=== PATIENT | male | born 1995 | race Asian ===

== ENCOUNTER 2022-02-06 21:33 | Emergency (ER) | payer OTHER ==
[~2022-02-06] VITALS: Ht 167.6 cm; Wt 77.1 kg
--- NOTE | 2022-02-06 21:44 | NUR ---
Dr. Acevedo at bedside for MSE.
[2022-02-06] MEDS ORDERED: LORAZEPAM 1 MG TABLET ONE (21:53)
[2022-02-06] MEDS ORDERED: LORAZEPAM 0.5 MG TABLET PO ONE (22:00)
[2022-02-06] MEDS ORDERED: LORA-259 PO (23:10)
--- NOTE | 2022-02-06 23:18 | NUR ---
Patient discharged to home in stable condition. Written and verbal after care instructions given. Patient verbalizes understanding of instructions. Stressed follow up or return to ER for worsening s/s. Patient out of ER with steady gait, no acute signs of distress, VSS, all belongings taken, provided with copy of xray results, instructed not to drive, will uber home.
[2022-02-06 23:19] VITALS: BP 130/72
== END 2022-02-06 23:19 | disposition home or self-care (01) ==
LOC: ER 22:14
DX: F41.9 Anxiety disorder, unspecified (principal)
CPT/HCPCS: 71045; A4663